=== PATIENT | female | born 1985 | race Caucasian/White ===

== ENCOUNTER 2017-08-02 02:50 | Emergency (ER) | payer MEDICAID ==
[2017-08-02] MEDS ORDERED: Ketorolac 60 MG/2 ML SDV IM ONE (03:54)
[2017-08-02 04:05] VITALS: BP 124/83
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
== END 2017-08-02 04:16 | disposition home or self-care (01) ==
LOC: FB.ED 02:50
DX: S09.90XA Unspecified injury of head, initial encounter (principal); S10.93XA Contusion of unspecified part of neck, initial encounter; Y04.8XXA Assault by other bodily force, initial encounter
CPT/HCPCS: 96372; 99284; J1885